=== PATIENT | male | born 1975 | race Caucasian/White ===

== ENCOUNTER 2025-01-04 08:25 | Emergency (ER) | payer OTHER ==
[~2025-01-04] VITALS: Ht 182.9 cm; Wt 106.1 kg
[2025-01-04 09:12] VITALS: BP 142/105
== END 2025-01-04 09:12 | disposition other institution, planned readmission (95) ==
LOC: ED 08:25
DX: M25.512 Pain in left shoulder (principal); V89.2XXA Person injured in unspecified motor-vehicle accident, traffic, initial encounter
CPT/HCPCS: 99284